=== PATIENT | male | born 1980 | race American Indian/Alaskan Native ===

== ENCOUNTER 2020-03-05 01:06 | Emergency (ER) | payer SELFPAY ==
[2020-03-05] MEDS ORDERED: ASPIRIN 325 MG TAB PO ONE (01:59)
--- NOTE | 2020-03-05 02:30 | XRay Report ---
CHEST 2 VIEWS INDICATION / CLINICAL INFORMATION: Chest Pain. FINDINGS: SUPPORT DEVICES: None. HEART / MEDIASTINUM: No significant abnormality. LUNGS / PLEURA: No significant pulmonary or pleural abnormality. No pneumothorax. ADDITIONAL FINDINGS: No significant additional findings. IMPRESSION: 1. No acute findings. Signer Name: Harrison Duran MD Signed: 03/05/2020 2:25 AM Workstation Name: [id number]
[2020-03-05 02:47] LABS: Basophils % (Auto) 0.6 % (0.0-1.8); Eosinophils # (Auto) 0.1 K/mm3 (0.0-0.4); Eosinophils % (Auto) 0.7 % (0.0-4.3); Hematocrit 44.3 % (35.5-45.6); Hemoglobin 15.6 gm/dl (11.8-15.2); Lymphocytes # (Auto) 1.9 K/mm3 (1.2-5.4); Lymphocytes % (Auto) 22.3 % (13.4-35.0); Mean Corpuscular HGB Conc 35 % (32-34); Mean Corpuscular Volume 94 fl (84-94); Monocytes # (Auto) 0.6 K/mm3 (0.0-0.8); Monocytes % (Auto) 6.8 % (0.0-7.3); Platelet Count 312 K/mm3 (140-440); Red Blood Count 4.72 M/mm3 (3.65-5.03); Red Cell Distribution Width 13.1 % (13.2-15.2)
[2020-03-05 02:50] LABS: Blood Urea Nitrogen 15 mg/dL (9-20); Calcium 9.2 mg/dL (8.4-10.2); Hemolysis Index 5
[2020-03-05 03:32] LABS: BUN/Creatinine Ratio 21
--- NOTE | 2020-03-05 07:21 | Emergency Department Report ---
HPI - General Chief Complaint: Chest Pain Time Seen by Provider: 03/05/20 07:07 - [facility] HPI: Room 6 The patient is a 39-year-old male present with a chief complaint of weakness. Patient denies ever having chest pain shortness of breath or pain of any type. Patient states yesterday he just felt profoundly weak. The patient states since then his symptoms have resolved. Patient now complains of slight hoarseness secondary to drinking cold water 3 days ago. Patient otherwise denies complaints and is asking when he can go home ED Past Medical Hx - Past Medical History Previous Medical History?: No - Surgical History Past Surgical History?: No - Family History Family history: no significant - Social History Smoking Status: Current Some Day Smoker Substance Use Type: None (Denies illicit drug use), Alcohol (Occasional) ED Review of Systems ROS: Stated complaint: SHAKES,NOT FEELING WELL,ANXIETY Other details as noted in HPI Constitutional: weakness Eyes: denies: eye pain ENT: denies: throat pain Respiratory: denies: cough, shortness of breath Cardiovascular: denies: chest pain Endocrine: no symptoms reported Gastrointestinal: denies: abdominal pain Genitourinary: denies: dysuria Musculoskeletal: denies: back pain Neurological: denies: headache Physical Exam - Physical Exam Vital Signs: Vital Signs 03/05/20 03/05/20 03/05/20 01:57 03:56 04:00 Temperature 98.6 F Pulse Rate 84 90 81 Respiratory 17 19 18 Rate Blood Pressure 156/99 139/110 O2 Sat by Pulse 96 95 Oximetry 03/05/20 03/05/20 03/05/20 04:16 05:29 06:00 Temperature Pulse Rate 70 63 65 Respiratory 22 20 20 Rate Blood Pressure 123/67 123/67 124/86 O2 Sat by Pulse 95 97 94 Oximetry Physical Exam: GENERAL: The patient is well-developed well-nourished male lying on stretcher not appearing to be in acute distress. [] HEENT: Normocephalic. Atraumatic. Extraocular motions are intact. Patient has moist mucous membranes. Oropharynx clear NECK: Supple. No meningitic signs are noted. Trachea midline. No stridor CHEST/LUNGS: Clear to auscultation. There is no respiratory distress noted. HEART/CARDIOVASCULAR: Regular. There is no tachycardia. There is no gallop rub or murmur. ABDOMEN: Abdomen is soft, nontender. Patient has normal bowel sounds. There is no abdominal distention. SKIN: There is no rash. There is no edema. There is no diaphoresis. NEURO: The patient is awake, alert, and oriented. The patient is cooperative. The patient has normal speech MUSCULOSKELETAL: There is no evidence of acute injury. ED Course Vital Signs 03/05/20 03/05/20 03/05/20 01:57 03:56 04:00 Temperature 98.6 F Pulse Rate 84 90 81 Respiratory 17 19 18 Rate Blood Pressure 156/99 139/110 O2 Sat by Pulse 96 95 Oximetry 03/05/20 03/05/20 03/05/20 04:16 05:29 06:00 Temperature Pulse Rate 70 63 65 Respiratory 22 20 20 Rate Blood Pressure 123/67 123/67 124/86 O2 Sat by Pulse 95 97 94 Oximetry ED Medical Decision Making - Lab Data Result diagrams: 03/05/20 02:10 03/05/20 02:10 Laboratory Tests 03/05/20 03/05/20 03/05/20 02:10 02:10 04:38 WBC 8.3 RBC 4.72 Hgb 15.6 H Hct 44.3 MCV 94 MCH 33 H MCHC 35 H RDW 13.1 L Plt Count 312 Lymph % (Auto) 22.3 [place] % (Auto) 6.8 Eos % (Auto) 0.7 Baso % (Auto) 0.6 Lymph # (Auto) 1.9 [place] # (Auto) 0.6 Eos # (Auto) 0.1 Baso # (Auto) 0.0 Seg Neutrophils % 69.6 Seg Neutrophils # 5.8 Sodium 140 Potassium 3.6 Chloride 100.0 Carbon Dioxide 25 Anion Gap 19 BUN 15 Creatinine 0.7 L Estimated GFR > 60 BUN/Creatinine Ratio 21 Glucose 113 H Calcium 9.2 Troponin T < 0.010 < 0.010 03/05/20 06:47 WBC RBC Hgb Hct MCV MCH MCHC RDW Plt Count Lymph % (Auto) [place] % (Auto) Eos % (Auto) Baso % (Auto) Lymph # (Auto) [place] # (Auto) Eos # (Auto) Baso # (Auto) Seg Neutrophils % Seg Neutrophils # Sodium Potassium Chloride Carbon Dioxide Anion Gap BUN Creatinine Estimated GFR BUN/Creatinine Ratio Glucose Calcium Troponin T < 0.010 - EKG Data -: EKG Interpreted by Me EKG shows normal: sinus rhythm Rate: normal - EKG Data When compared to previous EKG there are: previous EKG unavailable Interpretation: nonspecific ST-T wave lashonda - Radiology Data Radiology results: report reviewed (Chest x-ray), image reviewed (Chest x-ray) interpreted by me: Chest x-ray-no focal infiltrates, no pneumothorax, no foreign body seen [facility] [address] [place] [address] XRay Report Signed Patient: JAYY WAITE MR#: [id number] : 1980 Acct:[id number] Age/Sex: 39 / M ADM Date: 03/05/20 Loc: ED Attending Dr: Ordering Physician: ED MD ROULA Date of Service: 03/05/20 Procedure(s): XR chest routine 2V Accession Number(s): [id number] cc: ED MD ROULA Fluoro Time In Minutes: CHEST 2 VIEWS INDICATION / CLINICAL INFORMATION: Chest Pain. FINDINGS: SUPPORT DEVICES: None. HEART / MEDIASTINUM: No significant abnormality. LUNGS / PLEURA: No significant pulmonary or pleural abnormality. No pneumothorax. ADDITIONAL FINDINGS: No significant additional findings. IMPRESSION: 1. No acute findings. Signer Name: Harrison Duran MD Signed: 03/05/2020 2:25 AM Workstation Name: [id number] Transcribed By: BC Dictated By: Harrison Duran MD Electronically Authenticated By: Harrison Duran MD Signed Date/Time: 03/05/20224 DD/ 4 TD/TT: - Differential Diagnosis ACS, anemia, electrolyte imbalance, URI, Critical care attestation.: If time is entered above; I have spent that time in minutes in the direct care of this critically ill patient, excluding procedure time. ED Disposition Clinical Impression: Hoarseness, Weakness Disposition: DC-01 TO HOME OR SELFCARE Is pt being admited?: No Does the pt Need Aspirin: No Condition: Stable Additional Instructions: Return to the emergency department should you develop worsening symptoms, inability to tolerate food or liquids, high fever or any other concerns Referrals: [facility] [Provider Group] - 3-5 Days Time of Disposition: 07:45
[2020-03-05 08:02] VITALS: BP 124/86
== END 2020-03-05 08:20 | disposition home or self-care (01) ==
LOC: ED 01:06 → EDBD 01:06 → ED 08:20
DX: R49.0 Dysphonia (principal); R53.1 Weakness; F17.200 Nicotine dependence, unspecified, uncomplicated; Z79.899 Other long term (current) drug therapy
CPT/HCPCS: 36415; 71046; 80048; 84484; 85025; 93005